=== PATIENT | male | born 2000 | race Hispanic/Latino ===

== ENCOUNTER 2022-12-07 14:39 | Emergency (ER) | payer OTHER ==
[~2022-12-07] VITALS: Ht 185.4 cm; Wt 83.2 kg
[2022-12-07 17:02] LABS: GC DNA AMPLIFICATION NEGATIVE (NEGATIVE)
[2022-12-07 18:17] VITALS: BP 132/62; TEMP 98; O2SAT 100
== END 2022-12-07 19:53 | disposition home or self-care (01) ==
LOC: M ED 14:39
DX: N50.3 Cyst of epididymis (principal)

== ENCOUNTER → 2024-01-23 | Outpatient (CLI) | payer OTHER ==
[2024-01-23 17:15] LABS: HEMATOCRIT 39.4 % (42.0-52.0); MEAN CORPUSCULAR HEMOGLOBIN 30.7 pg (27.0-33.0); MEAN CORPUSCULAR VOLUME 93.1 fl (80.0-96.0); PLATELET COUNT, AUTOMATED 188 10^3/uL (150-450); RED BLOOD COUNT 4.23 10^6/uL (4.30-6.10); WHITE BLOOD COUNT 7.9 10^3/uL (4.0-10.0)
[2024-01-23 17:31] LABS: BLOOD UREA NITROGEN 15 MG/DL (9-23); CALCIUM LEVEL 9.5 MG/DL (8.5-10.1); CARBON DIOXIDE LEVEL 25 MMOL/L (20-31); CHLORIDE LEVEL 107 MMOL/L (98-107); CREATININE FOR GFR 0.78 MG/DL (0.70-1.30); GLOMERULAR FILTRATION RATE > 60.0 (>60); GLUCOSE, FASTING 84 MG/DL (60-100); POTASSIUM SERUM 3.8 MMOL/L (3.5-5.1); SODIUM LEVEL 140 MMOL/L (136-145)
== END ==
LOC: M RAD 16:11
PROVIDERS: ATTEND Physician Assistant
DX: Z01.818 Encounter for other preprocedural examination (principal); R00.1 Bradycardia, unspecified

== ENCOUNTER 2024-02-08 11:01 | Day surgery (SDC) | payer OTHER ==
[~2024-02-08] VITALS: Ht 185.4 cm; Wt 93.4 kg
[2024-02-08] MEDS ORDERED: LR 1,000 ML IV SCH ×2 (11:40→15:30)
[2024-02-08] MEDS ORDERED: LIDOCAINE 2% 100MG/5ML SDV (FOR ANES.) As Ordered ONE (13:07)
[2024-02-08] MEDS ORDERED: MIDAZOLAM INJ 2MG/2ML VIAL As Ordered ONE (13:07)
[2024-02-08] MEDS ORDERED: propofoL 200 MG/20 ML VIAL As Ordered ONE (13:07)
[2024-02-08] MEDS ORDERED: fentaNYL 100 MCG/2 ML INJECTION As Ordered ONE (13:07)
[2024-02-08] MEDS ORDERED: ACETAMINOPHEN 1000MG 100ML IV BAG As Ordered ONE (13:08)
[2024-02-08] MEDS ORDERED: KETOROLAC 60MG 2ML VIAL As Ordered ONE (13:29)
[2024-02-08] MEDS ORDERED: ONDANSETRON 4MG 2ML VIAL As Ordered ONE (13:29)
[2024-02-08] MEDS: ceFAZolin SOD 2 GM in IV 1 EA IV ONE (14:25)
[2024-02-08] MEDS ORDERED: HYDROmorphone HCL 2MG/ML 1ML VIAL As Ordered ONE (15:15)
[2024-02-08] MEDS: BACITRACIN OINTMENT 30GM TUBE As Ordered ONE (15:24)
[2024-02-08] MEDS: LIDOCAINE 1% SDV 30ML VIAL As Ordered ONE (15:25)
[2024-02-08] MEDS ORDERED: ONDANSETRON 4MG 2ML VIAL IV PRN (15:30)
[2024-02-08] MEDS ORDERED: fentaNYL 100 MCG/2 ML INJECTION IV PRN (15:30)
[2024-02-08] MEDS ORDERED: CEPH500C PO (16:40)
[2024-02-08] MEDS ORDERED: OXYC1TAB23 PO (16:40)
[2024-02-08 18:06] VITALS: BP 123/60; TEMP 98.1; O2SAT 99
== END 2024-02-08 18:11 | disposition home or self-care (01) ==
LOC: M SDC 11:01
PROVIDERS: ATTEND Urology
DX: N50.3 Cyst of epididymis (principal); Z90.49 Acquired absence of other specified parts of digestive tract; F17.290 Nicotine dependence, other tobacco product, uncomplicated
CPT/HCPCS: 54830; 88304; J0131; J0665; J0690; J1100; J1170; J1885; J2250; J2405; J3010